=== PATIENT | male | born 1960 | race Asian ===

== ENCOUNTER 2018-10-27 21:36 | Emergency (ER) | payer OTHER ==
[~2018-10-27] VITALS: Ht 172.7 cm; Wt 68.5 kg
[2018-10-27 22:01] VITALS: BP 138/90
--- NOTE | 2018-10-27 22:05 | NUR ---
PT AMBULATED TO LOBBY.
--- NOTE | 2018-10-28 01:21 | NUR ---
PT TAKEN TO BED 3
--- NOTE | 2018-10-28 01:30 | NUR ---
58/M PRESENTED TO ED WITH C/O SHOULDER PAIN. 09/29 CONSTANT PAIN. STATES HE FELL IN SHOWER AND LANDED ON R SHOULDER ON 10/27/18. RIGHT SHOULDER DEFORMITY NOTED. DECREASE ROM. STATES HE CAN NOT LIFT OR MOVE SHOULDER WITHOUT PAIN. NO NUMBNESS OR TINGLING NOTED. CAP REFILL LESS THAN 3 SEC. NO N/V/D. NO FEVER. VSS. CURRENT VITALS 136/90. 61P. 99%. DENIES ALLERGIES. DENIES PAST MED HX. DENIES RX. STATES DID NOT TAKE ANY MEDICATION TO RELIEVE PAIN PRIOR TO ARRIVING TO ED.
--- NOTE | 2018-10-28 02:10 | NUR ---
X RAY AT BEDSIDE
[2018-10-28] MEDS ORDERED: HYDROcodone/APAP 5/325 MG 1 TAB TAB PO ONE (02:30)
--- NOTE | 2018-10-28 03:00 | NUR ---
PT SITTING IN BED. AWAKE ALERT. ABLE TO MAKE NEEDS KNOWN. CURRENT PAIN 2/10. STATES PAIN IS TOLERABLE. WILL CONTINUE TO MONITOR. SON AT BEDSIDE.
--- NOTE | 2018-10-28 04:03 | NUR ---
PT WAS GIVEN A SHOULDER IMOBOLIZER FOR HIS RIGHT SHOULDER.
[2018-10-28 04:06] VITALS: BP 126/82
--- NOTE | 2018-10-28 04:06 | NUR ---
Patient discharged with v/s stable. Written and verbal after care instructions given and explained. Patient alert, oriented and verbalized understanding of instructions. Ambulatory with steady gait. All questions addressed prior to discharge. ID band removed. Patient advised to follow up with PMD. Rx of NORCO given. Patient educated on indication of medication including possible reaction and side effects. Opportunity to ask questions provided and answered. ACCOMPANIED BY SON.
== END 2018-10-28 04:06 | disposition home or self-care (01) ==
LOC: MED 21:36
DX: S42.031A Displaced fracture of lateral end of right clavicle, initial encounter for closed fracture (principal); W01.0XXA Fall on same level from slipping, tripping and stumbling without subsequent striking against object, initial encounter; Y93.E1 Activity, personal bathing and showering; Y92.89 Other specified places as the place of occurrence of the external cause; Y99.8 Other external cause status
CPT/HCPCS: 73030; 99283; Q0092